=== PATIENT | female | born 1970 | race Caucasian/White ===

== ENCOUNTER 2018-04-30 21:02 | Inpatient (IN) ==
[2018-04-30] MEDS ORDERED: Isovue-370 500 ML INFUS..BTL IV ONE (22:05)
--- NOTE | 2018-04-30 22:06 | Emergency Department Note ---
Disposition Clinical Impression: Multifocal pneumonia Disposition: Admitted As Inpatient Condition: Undetermined General Adult HPI - General Chief complaint: ED General Medical Stated complaint: swollen left leg left arm numbness Time Seen by Provider: 04/30/18 21:39 Source: patient - History of Present Illness Pain Scale: 5 - Related Data Home Medications Medication Instructions Recorded Confirmed Buprenorphine HCl/Naloxone HCl 1 tab PO BID 05/01/18 05/01/18 [Buprenorphin-Naloxon 8-2 mg Sl] Allergies Allergy/AdvReac Type Severity Reaction Status Date / Time No Known Allergies Allergy Verified 05/30/16 17:20 Past Medical History - Past Medical History Medical history: Reports: non-contributory, other Psychiatric history: Reports: no psych history - Social History Smoking Status: Current some day smoker Alcohol use: Reports: none Drug use: Reports: none Physical Exam - General General appearance: alert, in no apparent distress Course Vital Signs Temperature 98.1 F 04/30/18 21:10 Pulse Rate 77 04/30/18 21:10 Respiratory Rate 16 04/30/18 21:10 Blood Pressure 123/82 04/30/18 21:10 O2 Sat by Pulse Oximetry 97 04/30/18 21:10 Temperature 98.0 F 05/01/18 14:54 Pulse Rate 74 05/01/18 14:54 Respiratory Rate 16 05/01/18 16:29 Blood Pressure 108/71 05/01/18 14:54 O2 Sat by Pulse Oximetry 97 05/01/18 16:29 Oxygen Delivery Oxygen Delivery Room Air Medical Decision Making - Lab Data Result diagrams: 05/01/18 04:26 05/01/18 04:26 Lab Results 04/30/18 04/30/18 05/01/18 Range/Units 22:15 22:15 04:26 WBC 11.3 H 10.6 (4.3-11.1) K/mcL RBC 4.17 4.08 (3.82-4.97) M/mcL Hgb 12.5 11.8 (11.5-15.4) g/dL Hct 36.0 35.0 L (35.3-44.9) % MCV 86.3 85.8 (83.0-100.0) fL MCH 30.0 28.9 (28.0-33.3) pg MCHC 34.7 33.7 (31.6-35.5) g/dL RDW 12.7 12.7 (11.5-14.5) % Plt Count 345 327 (140-400) K/mcL MPV 10.1 10.3 (9.4-12.4) fL Immature Gran % 0.5 0.4 (0-4) % Seg Neutrophils % 74.5 75.3 % Lymphocytes % 16.2 16.7 % Monocytes % 4.1 4.5 % Eosinophils % 3.6 2.3 % Basophils % 1.1 0.8 % Neutrophils # 8.4 8.0 (1.6-8.9) K/mcL Lymphocytes # 1.8 1.8 (0.6-4.6) K/mcL Monocytes # 0.5 0.5 (0.0-1.3) K/mcL Eosinophils # 0.4 0.2 (0.0-0.6) K/mcL Basophils # 0.1 0.1 (0.0-0.2) K/mcL Sodium 140 (136-145) mEq/L Potassium 3.0 L (3.5-5.1) mEq/L Chloride 106 (98-107) mEq/L Carbon Dioxide 27 (23-29) mEq/L BUN 6 (6-20) mg/dL Creatinine 0.37 L (0.60-1.20) mg/dL Est GFR ( Amer) > 60 (> 60) Est GFR (Non-Af Amer) > 60 (> 60) BUN/Creatinine Ratio 16 (6-26) Glucose 94 (70-105) mg/dL Calculated Osmolality 287 (280-300) Calcium 9.4 (8.6-10.3) mg/dL Troponin I < 0.03 (< 0.04) ng/mL 05/01/18 Range/Units 04:26 WBC (4.3-11.1) K/mcL RBC (3.82-4.97) M/mcL Hgb (11.5-15.4) g/dL Hct (35.3-44.9) % MCV (83.0-100.0) fL MCH (28.0-33.3) pg MCHC (31.6-35.5) g/dL RDW (11.5-14.5) % Plt Count (140-400) K/mcL MPV (9.4-12.4) fL Immature Gran % (0-4) % Seg Neutrophils % % Lymphocytes % % Monocytes % % Eosinophils % % Basophils % % Neutrophils # (1.6-8.9) K/mcL Lymphocytes # (0.6-4.6) K/mcL Monocytes # (0.0-1.3) K/mcL Eosinophils # (0.0-0.6) K/mcL Basophils # (0.0-0.2) K/mcL Sodium 140 (136-145) mEq/L Potassium 3.6 (3.5-5.1) mEq/L Chloride 107 (98-107) mEq/L Carbon Dioxide 27 (23-29) mEq/L BUN 5 L (6-20) mg/dL Creatinine 0.37 L (0.60-1.20) mg/dL Est GFR ( Amer) > 60 (> 60) Est GFR (Non-Af Amer) > 60 (> 60) BUN/Creatinine Ratio 14 (6-26) Glucose 102 (70-105) mg/dL Calculated Osmolality 287 (280-300) Calcium 9.1 (8.6-10.3) mg/dL Troponin I (< 0.04) ng/mL Attestation Statement - Attestation Attestation: I examined this patient and my medical decision-making was reviewed with the Resident Physician. I agree with the documented findings, disposition and treatment plan as described except to the extent set forth below. Patient to the ED with left leg pain and swelling for the past week. Increasing. She is also had some chest pain and some tingling in her left arm. No fever. No history of blood clots per mother had it. On examination she has tenderness swelling and a palpable cord of the left leg. Foot pink and warm. Heart regular lungs clear. Plan. Ultrasound rule out DVT. Cardiac workup with CTA chest. Ultrasound negative for DVT. CT shows pneumonia. We will start antibiotic. Chest CTA 04/30/18 22:05 IMPRESSION: No evidence of a pulmonary embolus. Bilateral patchy ground-glass airspace disease particularly in the mid lungs. Manifestation of multifocal pneumonia suspected. Edema, air trapping and atelectasis not excluded. D/ / Silvestre Cason MD / Silvestre Cason MD Interpreting Provider: Silvestre Cason MD
--- NOTE | 2018-04-30 22:08 | Emergency Department Note ---
Disposition Clinical Impression: Multifocal pneumonia Disposition: Admitted As Inpatient Condition: Undetermined Time of Disposition: 01:24 General Adult HPI - General Chief complaint: ED General Medical Stated complaint: swollen left leg left arm numbness Time Seen by Provider: 04/30/18 21:39 Source: patient Mode of arrival: ambulatory Limitations: no limitations Nursing Notes Reviewed: Yes Vital Signs Reviewed: Yes - History of Present Illness HPI Narrative: 47-year-old female with history of bigeminy, arrives to the emergency department with complaint of left lower extremity swelling, pain and redness. The patient states this started roughly 1 week ago. The patient states that also she started experiencing roughly 1 or 2 days later a small amount of chest pressure and dyspnea. The patient states this is continued. The patient states that she has no previous history of DVT or PE but mother does have history of "blood clot". The patient denies any other complaints at this time. She is resting comfortably in the room. The patient does have a palpable cord of her left lower extremity. Pain Scale: 5 - Related Data Allergies Allergy/AdvReac Type Severity Reaction Status Date / Time No Known Allergies Allergy Verified 05/30/16 17:20 All systems ED: reviewed and negative except as stated. Constitutional: Denies: fever, chills, weakness ENT ED: Denies: dysphagia Cardiovascular: Reports: chest pain. Denies: dyspnea on exertion, edema, syncope Respiratory: Reports: dyspnea. Denies: cough, sputum production Gastrointestinal: Denies: abdominal pain, nausea, vomiting Genitourinary: Denies: urgency, dysuria Musculoskeletal: Reports: myalgia. Denies: back pain, neck pain, arthralgia Integumentary: Denies: rash Neurological: Denies: headache Past Medical History - Past Medical History Attestation: Yes The following information was validated with the patient. Source: patient, old records reviewed Medical history: Reports: non-contributory, other Surgical history: Reports: non-contributory Psychiatric history: Reports: no psych history - Social History Smoking Status: Current some day smoker Alcohol use: Reports: none Drug use: Reports: none Physical Exam - General Limitations: no limitations General appearance: alert, in no apparent distress - Head Head exam: atraumatic, normocephalic, normal inspection - Eye Eye exam: Present: normal appearance, PERRL, EOMI - ENT ENT exam: normal exam, normal oropharynx, mucous membranes moist - Neck Neck exam: Present: normal inspection, full ROM, trachea midline - Chest Chest inspection: Present: normal inspection, symmetric chest wall rise - Respiratory Respiratory exam: Present: normal lung sounds bilaterally - Cardiovascular Cardiovascular exam: Present: regular rate, normal rhythm, normal heart sounds - Abdominal Exam Abdominal exam: Present: soft, Non-Tender. Absent: tenderness, distention, guarding, rebound, rigidity - Extremities Exam Extremities exam: Present: full ROM, tenderness (LLE with palpable cord noted in the left femoral region. Mild amount of erythema in the region as well) - Neurological Exam Neurological exam: Present: alert, oriented X3 - Skin Skin exam: Present: warm, dry, intact, normal color Course Vital Signs Temperature 98.1 F 04/30/18 21:10 Pulse Rate 77 04/30/18 21:10 Respiratory Rate 16 04/30/18 21:10 Blood Pressure 123/82 04/30/18 21:10 O2 Sat by Pulse Oximetry 97 04/30/18 21:10 Temperature 98.0 F 05/01/18 14:54 Pulse Rate 74 05/01/18 14:54 Respiratory Rate 16 05/01/18 16:29 Blood Pressure 108/71 05/01/18 14:54 O2 Sat by Pulse Oximetry 97 05/01/18 16:29 Oxygen Delivery Oxygen Delivery Room Air Medical Decision Making - MDM Narrative Medical decision making narrative: Patient's work-up in the ED demonstrates concerning for multifocal pneumonia. The patient was started on broad-spectrum anabiotic's and blood cultures were performed. The patient will be admitted to the hospital for further workup and care. Patient made aware and agrees to plan. No further questions or concerns noted at this time. The patient was accepted by Dr. Miller. - Lab Data Lab results reviewed: Yes I reviewed the patient's lab results. Result diagrams: 05/01/18 04:26 05/01/18 04:26 Lab Results 04/30/18 04/30/18 05/01/18 Range/Units 22:15 22:15 04:26 WBC 11.3 H 10.6 (4.3-11.1) K/mcL RBC 4.17 4.08 (3.82-4.97) M/mcL Hgb 12.5 11.8 (11.5-15.4) g/dL Hct 36.0 35.0 L (35.3-44.9) % MCV 86.3 85.8 (83.0-100.0) fL MCH 30.0 28.9 (28.0-33.3) pg MCHC 34.7 33.7 (31.6-35.5) g/dL RDW 12.7 12.7 (11.5-14.5) % Plt Count 345 327 (140-400) K/mcL MPV 10.1 10.3 (9.4-12.4) fL Immature Gran % 0.5 0.4 (0-4) % Seg Neutrophils % 74.5 75.3 % Lymphocytes % 16.2 16.7 % Monocytes % 4.1 4.5 % Eosinophils % 3.6 2.3 % Basophils % 1.1 0.8 % Neutrophils # 8.4 8.0 (1.6-8.9) K/mcL Lymphocytes # 1.8 1.8 (0.6-4.6) K/mcL Monocytes # 0.5 0.5 (0.0-1.3) K/mcL Eosinophils # 0.4 0.2 (0.0-0.6) K/mcL Basophils # 0.1 0.1 (0.0-0.2) K/mcL Sodium 140 (136-145) mEq/L Potassium 3.0 L (3.5-5.1) mEq/L Chloride 106 (98-107) mEq/L Carbon Dioxide 27 (23-29) mEq/L BUN 6 (6-20) mg/dL Creatinine 0.37 L (0.60-1.20) mg/dL Est GFR ( Amer) > 60 (> 60) Est GFR (Non-Af Amer) > 60 (> 60) BUN/Creatinine Ratio 16 (6-26) Glucose 94 (70-105) mg/dL Calculated Osmolality 287 (280-300) Calcium 9.4 (8.6-10.3) mg/dL Troponin I < 0.03 (< 0.04) ng/mL 05/01/18 Range/Units 04:26 WBC (4.3-11.1) K/mcL RBC (3.82-4.97) M/mcL Hgb (11.5-15.4) g/dL Hct (35.3-44.9) % MCV (83.0-100.0) fL MCH (28.0-33.3) pg MCHC (31.6-35.5) g/dL RDW (11.5-14.5) % Plt Count (140-400) K/mcL MPV (9.4-12.4) fL Immature Gran % (0-4) % Seg Neutrophils % % Lymphocytes % % Monocytes % % Eosinophils % % Basophils % % Neutrophils # (1.6-8.9) K/mcL Lymphocytes # (0.6-4.6) K/mcL Monocytes # (0.0-1.3) K/mcL Eosinophils # (0.0-0.6) K/mcL Basophils # (0.0-0.2) K/mcL Sodium 140 (136-145) mEq/L Potassium 3.6 (3.5-5.1) mEq/L Chloride 107 (98-107) mEq/L Carbon Dioxide 27 (23-29) mEq/L BUN 5 L (6-20) mg/dL Creatinine 0.37 L (0.60-1.20) mg/dL Est GFR ( Amer) > 60 (> 60) Est GFR (Non-Af Amer) > 60 (> 60) BUN/Creatinine Ratio 14 (6-26) Glucose 102 (70-105) mg/dL Calculated Osmolality 287 (280-300) Calcium 9.1 (8.6-10.3) mg/dL Troponin I (< 0.04) ng/mL - Radiology Data Radiology results reviewed: Yes I reviewed the patient's radiology results. Chest CTA 04/30/18 22:05 IMPRESSION: No evidence of a pulmonary embolus. Bilateral patchy ground-glass airspace disease particularly in the mid lungs. Manifestation of multifocal pneumonia suspected. Edema, air trapping and atelectasis not excluded. D/ / Silvestre Cason MD / Silvestre Cason MD Interpreting Provider: Silvestre Cason MD
[2018-04-30 22:28] LABS: Basophils # 0.1 K/mcL (0.0-0.2); Basophils % 1.1 %; Eosinophils # 0.4 K/mcL (0.0-0.6); Eosinophils % 3.6 %; Hemoglobin 12.5 g/dL (11.5-15.4); Immature Granulocytes % 0.5 % (0-4); Lymphocytes # 1.8 K/mcL (0.6-4.6); Lymphocytes % 16.2 %; Mean Corpuscular HGB Conc 34.7 g/dL (31.6-35.5); Mean Corpuscular Volume 86.3 fL (83.0-100.0); Mean Platelet Volume 10.1 fL (9.4-12.4); Monocytes # 0.5 K/mcL (0.0-1.3); Monocytes % 4.1 %; Neutrophils # 8.4 K/mcL (1.6-8.9); Platelet Count 345 K/mcL (140-400); Red Blood Count 4.17 M/mcL (3.82-4.97); Red Cell Distribution Width 12.7 % (11.5-14.5); Segmented Neutrophils % 74.5 %
[2018-04-30 22:49] LABS: Troponin I < 0.03 ng/mL (< 0.04)
[2018-04-30 22:50] LABS: BUN/Creatinine Ratio 16 (6-26); Blood Urea Nitrogen 6 mg/dL (6-20); Calcium 9.4 mg/dL (8.6-10.3); Carbon Dioxide 27 mEq/L (23-29); Chloride 106 mEq/L (98-107); Glucose 94 mg/dL (70-105); Osmolality,Calculated 287 (280-300); Sodium 140 mEq/L (136-145); eGFR For Non-African Americans > 60 (> 60)
[2018-05-01] MEDS ORDERED: Piperacillin/Tazobactam 3.375 GM in 0.9 % Sodium Chloride Mini Bag 100 ML IVPB ONE (00:58)
[2018-05-01] MEDS ORDERED: Ketorolac 15 MG/ML VIAL IVP PRN (02:38)
[2018-05-01] MEDS ORDERED: Acetaminophen 325 MG TABLET PO PRN (02:38)
[2018-05-01] MEDS: Ringers Solution, Lactated 1,000 ML IVC SCH ×2 (03:44→19:41)
--- NOTE | 2018-05-01 03:59 | Internal Med History&Physical ---
Date of Encounter: 05/01/18 Time of Encounter: 03:53 Internal Medicine - H&P: HPI Chief complaint: leg pain Admitted From: Home Plans for Post Hospital Care: Home History of present illness: Ms. Gr is a 47 year old woman with a history of opiate dependence (pills only, she denies IVDU) and no known medical comorbidities who presents to the ER with the complaint of left leg pain and swelling for the past week. She states that she noticed redness and pain on the medial aspect of her left leg first with a palpable "knot" which she felt was just a muscle spasm and it subsided. She then noticed swelling and redness inferior to the area which again subsided and now has exquisite tenderness and notable redness on the superior aspect of her inner left thigh. She denies fever per se but has felt some chills. She denies any trauma to the area or puncture wounds. She denies injections of any sort. 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 She denies being scratched by any object or animal. On arrival to the ER a palpable cord was felt where the inflammatory signs were noted concerning for an infectious process. A bedside ultrasound was done which ruled out DVT. The patient complained of some chest discomfort and tingling to the team for which reason a chest CT was obtained. The findings on this study were revealing of multifocal patchy opacifications that were non-specific but possibly suggestive of a pneumonia amongst other entities. She was started on empiric antibiotics and admitted for further management. The patient states that she does not access medical services and is not sure if she has any comorbidities. She smokes 1/2 pack daily. Has been working in the factory for years. She is not coughing or producing sputum. No pleuritic chest pain. Past Med Surg Social Fam HX - Past Medical History Medical history: non-contributory, other Additional medical history: bigemny Psychiatric history: no psych history - Past Surgical History Surgical History: appendectomy, cholecystectomy, hysterectomy Additional surgical history: TUBAL - Social History Smoking Status: Current some day smoker Packs per day: 0.5 Alcohol use: none Drug use: none - Family History Mother Adopted: [place]: JANNET Family Member Ethnicity: Non- Living Status: Age at : 60 Cause of : TUMOR OF SINUS CAVITY Hx Family Cardiac Disorders: Yes (AL) Hx Family Respiratory Disorders: No Hx Family Cancer: Yes Hx Family GI Disorders: No Hx Family Genitourinary Disorders: No Hx Family Endocrine Disorder: No Hx Family Musculoskeletal Disorders: No Hx Family Neuromuscular Disorders: No Hx Family Neurologic Disorders: No Hx Family HEENT Disorders: No Hx Family Autoimmune Disorders: No Hx Family Reproductive Disorders: No Hx Family Psychosocial Disorders: No Internal Medicine - H&P: Meds Buprenorphin-Naloxon 8-2 mg Sl 8 mg PO BID 05/01/18 [History] 3 Allergy/AdvReac Type Severity Reaction Status Date / Time No Known Allergies Allergy Verified 05/30/16 17:20 All Systems PM: A 10-system review of systems was performed and is negative for pertinent findings except as documented above in the HPI. - Constitutional Vitals: Temp Pulse Resp BP Pulse Ox 98.0 F 90 14 113/72 96 05/01/18 03:37 05/01/18 03:37 05/01/18 03:37 05/01/18 03:37 05/01/18 03:37 Exam: Vitals: Reviewed General: Well-developed and in no acute distress, comfortable on room air. Skin: Focal 5-6cm area of erythema over the superior inner left thigh with warmth and exquisite tenderness to palpation as well as a localized induration; medial aspect of lower left leg with resolving erythema but still a palpable cord-like area noted and some tenderness elicited on palpation. HEENT: Moist mucous membranes. No conjunctivae pallor. Neck: No lymphadenopathy. No JVD. No carotid bruits. No palpable thyroid. Chest: Normal thoracic expansion. Normal breath sounds. No wheezes, rales or rhonchi. Heart: Normal S1 & S2; rhythmic. No rubs or murmurs. Abdomen: Non-distended, soft and non-tender to palpation. No peritoneal reaction. Liver is normal in size. Spleen is not palpable. Extremities: No clubbing, cyanosis or edema. Normal distal pulses. Neurological: Awake, alert and oriented to person, place and time. No focal deficits. Psych: Affect appropriate. Internal Med - H&P Results - Labs CBC & Chem 7: 04/30/18 22:15 04/30/18 22:15 - Diagnostic Studies CT scan - chest Additional comments: Findings of multifocal patchy opacities are noted; no specific pattern and no consolidations or cavitations noted. Somewhat faint in appearance and suggestive of an early developing process or a resolving process. - Assessment and plan (1) Cellulitis Current Visit: Yes Status: Acute Assessment and plan: The patient has significant inflammatory signs that appear somewhat superficial to the skin but with palpable areas suggestive of lymphatic vessel affectation ( palpable cords of lymphangitis) or thrombophlebitis. She denies any puncture wounds or trauma as the inciting factor and it seems not confluent to just one area. She has mild leukocytosis but no fever. -Will place on vancomycin IV for now which should help cover Staph and Strep as the most likely bacterial organisms and she should be observed daily for improvement or not. -Blood cultures were obtained and should be followed. -Adequate doppler ultrasounds ordered to rule out any thrombosis. Qualifiers: Site of cellulitis: extremity Site of cellulitis of extremity: lower extremity Laterality: left Qualified Code(s): L03.116 - Cellulitis of left lower limb (2) Multifocal pneumonia Current Visit: Yes Status: Acute Assessment and plan: The patient does not have overt symptoms of pneumonia per se such as difficulty breathing, productive or even dry but bothersome and persistent cough, pleuritic chest pain, hypoxia. The differentials include an atypical pneumonia, a fungal process, an interstitial lung disease formation, inhalation pneumonitis and aspiration. It does not have the focal cavitations consistent with pulmonary septic emboli which can be seen in bacteremic cases especially taking into account her skin and soft tissue/vascular infection. -Sputum gram stain and culture is ordered if she does produce some. -Urine histoplasma Ag ordered (pulmonary disease can be preceded by inflammatory skin manifestations of erythema nodosum). -Will give atypical coverage with levofloxacin 500mg daily and discontinue PipTazo. -She will benefit from a repeat CT scan in a week or so to assess if this is a developing or resolving process. -May require pulmonary consultation for bronchoscopy and lavage to obtain better sampling for routine, anaerobic, fungal cultures and histopathology. (3) Hypokalemia Current Visit: Yes Status: Acute Assessment and plan: Will supplement with 40mEq of KCL and recheck. (4) Tobacco dependence Current Visit: Yes Status: Chronic Assessment and plan: Counseling given and resources made available. (5) Opiate dependence Current Visit: Yes Status: Chronic Assessment and plan: Will continue buprenorphine/naloxone BID. Avoiding narcotics for pain control unless necessary. Qualifiers: Substance use status: uncomplicated Qualified Code(s): F11.20 - Opioid dependence, uncomplicated (6) DVT prophylaxis Current Visit: Yes Status: Acute Assessment and plan: SubQ heparin ordered. - Time Spent With Patient Total time spent is greater than 50% in coordination of care (as documented) at patient's floor/unit and/or counseling patient: Greater than 35 minutes
[2018-05-01 05:15] LABS: Basophils # 0.1 K/mcL (0.0-0.2); Basophils % 0.8 %; Eosinophils # 0.2 K/mcL (0.0-0.6); Eosinophils % 2.3 %; Hemoglobin 11.8 g/dL (11.5-15.4); Immature Granulocytes % 0.4 % (0-4); Lymphocytes # 1.8 K/mcL (0.6-4.6); Lymphocytes % 16.7 %; Mean Corpuscular HGB Conc 33.7 g/dL (31.6-35.5); Mean Corpuscular Hemoglobin 28.9 pg (28.0-33.3); Mean Corpuscular Volume 85.8 fL (83.0-100.0); Mean Platelet Volume 10.3 fL (9.4-12.4); Monocytes # 0.5 K/mcL (0.0-1.3); Monocytes % 4.5 %; Platelet Count 327 K/mcL (140-400); Red Blood Count 4.08 M/mcL (3.82-4.97); Red Cell Distribution Width 12.7 % (11.5-14.5); Segmented Neutrophils % 75.3 %
[2018-05-01] MEDS: *HR* Heparin 5,000 UNIT/ML VIAL SQ SCH ×3 (06:17→21:48)
[2018-05-01 07:29] LABS: BUN/Creatinine Ratio 14 (6-26); Blood Urea Nitrogen 5 mg/dL (6-20); Calcium 9.1 mg/dL (8.6-10.3); Carbon Dioxide 27 mEq/L (23-29); Chloride 107 mEq/L (98-107); Glucose 102 mg/dL (70-105); Osmolality,Calculated 287 (280-300); Potassium 3.6 mEq/L (3.5-5.1); Sodium 140 mEq/L (136-145); eGFR For Non-African Americans > 60 (> 60)
--- NOTE | 2018-05-01 08:30 | Electrocardiograph Report ---
[address] [address] Test Date: 2018-04-30 Pat Name: Simona Gr Department: Room: 3B Gender: F Accounting Manager Controller: : 1970 Requested By: Marquis Sampson Order Number: [id number] Reading MD: Miguel Hurd Measurements Intervals [place] Rate: 67 P: 51 OK: 118 QRS: 68 QRSD: 94 T: 79 QT: 373 QTc: 394 Interpretive Statements Sinus rhythm Nonspecific ST-T changes Electronically Signed On 05-01-2018 8:29:21 EDT by Miguel Hurd
[2018-05-01] MEDS: Levofloxacin 500 MG/100 ML 500 MG/100 ML BAG IVPB SCH (10:21)
[2018-05-01] MEDS: BUPRENORPHIN NALOXON PO SCH ×2 (10:44→21:47)
[2018-05-01 11:51] LABS: Amphetamine Screen,Urine Negative ng/mL (Cutoff=1000); Barbiturate Screen,Urine Negative ng/mL (Cutoff=200); Benzodiazepines Screen,Urine Negative ng/mL (Cutoff=200); Cannabinoid Screen,Urine Negative ng/mL (Cutoff = 50); Cocaine Screen,Urine Negative ng/mL (Cutoff= 300); Opiate Screen,Urine Negative ng/mL (Cutoff=300); Phencyclidine Screen,Urine Negative ng/mL (Cutoff=25)
[2018-05-01] MEDS ORDERED: Aminoglycoside Consult 1 EACH MC ONE (13:12)
--- NOTE | 2018-05-01 16:06 | Internal Med Progress Note ---
Date of Encounter: 05/01/18 Time of Encounter: 09:20 - Assessment and plan (1) Multifocal pneumonia Current Visit: Yes Status: Acute Assessment and plan: Multifocal community-acquired pneumonia, present on admission, likely bacterial - slowly improving Continue IV Levaquin, IV Vancomycin, DuoNeb breathing treatment Incentive spirometry, O2 via nasal cannula as needed Cultures - pending CTA chest - bilateral patchy groundglass opacities, likely multifocal pneumonia Repeat labs in a.m., monitor closely (2) Cellulitis Current Visit: Yes Status: Acute Assessment and plan: Acute cellulitis left lower extremity with possible thrombophlebitis Continue IV Vancomycin, IV Levaquin Cultures - pending Ultrasound Doppler - negative for DVT Qualifiers: Site of cellulitis: extremity Site of cellulitis of extremity: lower extremity Laterality: left Qualified Code(s): L03.116 - Cellulitis of left lower limb (3) Opiate dependence Current Visit: Yes Status: Chronic Assessment and plan: Chronic pain and opiate dependence Patient is on Buprenorphine/Naloxone at home Qualifiers: Substance use status: uncomplicated Qualified Code(s): F11.20 - Opioid dependence, uncomplicated (4) Tobacco dependence Current Visit: Yes Status: Chronic Assessment and plan: Patient smokes about 1/2 ppd. Counseled on cessation Declines nicotine patch. (5) DVT prophylaxis Current Visit: Yes Status: Acute Assessment and plan: Continue heparin subcutaneous - Time Spent With Patient 25 - 35 minutes - Subjective Interval history: Examined this morning. Patient is awake and alert. Not in any distress. Denies chest pain or shortness of breath. Complains of mild cough. Also complains of mild generalized weakness. Patient's main complaint is left lower extremity pain. Worse with movement. Rates it 5/10. States that it is burning. No aggravating or alleviating factors. No fever. Hemodynamically stable. No other acute complaints. Admitted for multifocal pneumonia and cellulitis, possible thrombophlebitis. Continue IV Levaquin and IV Vancomycin. Cultures pending. CTA chest negative for PE. Ultrasound Doppler negative for DVT. Anticipate discharge home in 24- 48 hours. - Constitutional Vitals: Temp Pulse Resp BP Pulse Ox 98.0 F 74 16 108/71 97 05/01/18 14:54 05/01/18 14:54 05/01/18 14:54 05/01/18 14:54 05/01/18 14:54 General appearance: Present: cooperative, A&O X 3, pleasant, no acute distress, answers questions appropriately - Head Head exam: Present: atraumatic - Eye Eye exam: Present: EOMI - ENT ENT exam: Present: mucous membranes moist - Respiratory Respiratory exam: Present: decreased breath sounds (Slightly decreased in both bases, otherwise clear to auscultation). Absent: respiratory distress, rhonchi , wheezes, tachypnea - Cardiovascular Cardiovascular exam: Present: RRR, +S1, +S2 - GI/Abdominal GI/Abdominal exam: Present: soft, no peritoneal signs. Absent: distended, guarding, tenderness - Extremities Exam Extremities exam: Absent: calf tenderness, pedal edema, tenderness - Neurological Exam Neurological exam: Present: alert, oriented X3, no focal deficits. Absent: speech deficit Internal Medicine: Result - Labs CBC & Chem 7: 05/01/18 04:26 05/01/18 04:26 Consult Discharge Plan - Plan Referrals: NONE,PCP [Primary Care Provider] -
[2018-05-01] MEDS: Ipratropium/Albuterol Neb 3 ML IH SCH ×2 (16:29→22:22)
[2018-05-02] MEDS: Ipratropium/Albuterol Neb 3 ML IH SCH ×2 (03:24→11:10)
[2018-05-02 05:56] LABS: Hematocrit 30.4 % (35.3-44.9); Mean Corpuscular HGB Conc 33.6 g/dL (31.6-35.5); Mean Corpuscular Hemoglobin 29.5 pg (28.0-33.3); Mean Corpuscular Volume 87.9 fL (83.0-100.0); Mean Platelet Volume 10.3 fL (9.4-12.4); Platelet Count 275 K/mcL (140-400); Red Blood Count 3.46 M/mcL (3.82-4.97); Red Cell Distribution Width 12.8 % (11.5-14.5)
[2018-05-02 05:59] LABS: Hemoglobin 10.2 g/dL (11.5-15.4)
[2018-05-02 06:11] LABS: BUN/Creatinine Ratio 18 (6-26); Blood Urea Nitrogen 6 mg/dL (6-20); Calcium 8.8 mg/dL (8.6-10.3); Carbon Dioxide 29 mEq/L (23-29); Chloride 109 mEq/L (98-107); Glucose 108 mg/dL (70-105); Osmolality,Calculated 292 (280-300); Potassium 3.7 mEq/L (3.5-5.1); Sodium 142 mEq/L (136-145); eGFR For Non-African Americans > 60 (> 60)
[2018-05-02] MEDS: *HR* Heparin 5,000 UNIT/ML VIAL SQ SCH (06:13)
[2018-05-02] MEDS ORDERED: predniSONE 20 MG TABLET PO SCH (09:00)
[2018-05-02] MEDS: Levofloxacin 500 MG/100 ML 500 MG/100 ML BAG IVPB SCH (09:06)
[2018-05-02] MEDS: BUPRENORPHIN NALOXON PO SCH (11:17)
[2018-05-02 11:29] VITALS: BP 106/67
--- NOTE | 2018-05-02 12:41 | Discharge Summary ---
Orders not resulted at time of discharge: Pending orders 05/02/18 13:00 Vancomycin,Trough Timed 05/03/18 04:00 Basic Metabolic Panel AM 0400 Complete Blood Count [HEME] AM 0400 Magnesium AM 0400 Date of Encounter: 05/02/18 Time of Encounter: 09:40 - Discharge Diagnosis (1) Multifocal pneumonia Priority: Primary Status: Acute Comments: Multifocal community-acquired pneumonia, present on admission, likely bacterial - now improved - patient is asymptomatic Continue Augmentin, Bactrim DS, DuoNeb breathing treatment on discharge Continue Incentive spirometry on discharge Prescriptions for nebulizer machine, DuoNeb and antibiotics provided the patient Patient was on IV Levaquin, IV Vancomycin in the hospital Cultures - pending CTA chest - bilateral patchy groundglass opacities, likely multifocal pneumonia Patient insists on being discharged today. States that she will lose her job if she is not discharged. Patient is crying, and wants to go home. Advised at least 1 more day of stay in the hospital, but patient refused. Patient seems otherwise stable. Advised return if symptoms worsen. Follow-up with primary care physician (2) Cellulitis Priority: Primary Status: Acute Comments: Acute cellulitis left lower extremity with possible thrombophlebitis - now improved Continue Augmentin, Bactrim DS on discharge Cultures - pending Ultrasound Doppler - negative for DVT Patient insists on being discharged home today. Follow up with primary care physician. Return if symptoms worsen. Qualifiers: Site of cellulitis: extremity Site of cellulitis of extremity: lower extremity Laterality: left Qualified Code(s): L03.116 - Cellulitis of left lower limb (3) Opiate dependence Priority: Primary Status: Chronic Comments: Chronic pain and opiate dependence Continue home dose of Buprenorphine/Naloxone Qualifiers: Substance use status: uncomplicated Qualified Code(s): F11.20 - Opioid dependence, uncomplicated (4) Tobacco dependence Priority: Primary Status: Chronic Comments: Patient smokes about 1/2 ppd. Counseled on cessation Nicotine patch prescription provided. Hospital course: Ms. Gr is a 47 year old female with past medical history of opiate dependence and tobacco abuse. Patient presented to the ED with complaints of left lower leg pain and swelling for 1 week. Patient states that she noticed redness and pain and a possibly a knot. She stated that the symptoms were gradually worsening. She denies any injury or trauma. There was initial concern for cellulitis or thrombophlebitis. Ultrasound of the Doppler was obtained initially. This is negative for DVT. Patient also initially complained of some chest discomfort. CT of the chest revealed multifocal opacifications, suggestive of pneumonia. Patient was admitted for cellulitis and multifocal pneumonia. She was started on DuoNeb breathing treatment, IV Levaquin and IV vancomycin. Cultures are pending at this time. Patient's left lower leg erythema, warmth and tenderness have now improved significantly. Patient denies having any cough or shortness of breath at this time. States she feels better, wants to go home today. Patient seems to have tolerated all her meds well. She is being discharged on Augmentin, Bactrim DS and advised to continue DuoNeb breathing treatment. Prescriptions for antibiotics and also for nebulizer machine have been provided. Patient has been counseled extensively about smoking cessation. Nicotine patch prescription has been provided. No other acute events or palpitations during her stay in the hospital. Examined this morning. Patient is old blood. Not in any distress. Sitting up comfortable in bed. Denies chest pain or shortness breath. Patient is crying, stating that she wants to go home. States that she will job if she is not discharged today. Patient's labs vitals are all fairly within normal limits otherwise. Patient has been explained about her condition and plan of care in detail. She understood and agreed. No unanswered questions. No family members at the time of discharge. Advised return if symptoms worsen. Advised follow-up with primary care physician. Time spent discussing smoking cessation with patient: 3 to 10 minutes - Time Spent with Patient Total time spent providing and/or coordinating discharge services: Less than 30 minutes - Discharge Medications Prescriptions: Ipratropium/Albuterol Neb [Duoneb] 3 ml IH [id number] #30 inhsol Amoxicillin/Clavulanate [Augmentin] 875 mg PO BIDWM 10 Days #20 tablet Nicotine Patch [Nicoderm] 14 mg TD DAILY #30 patch.[id number] predniSONE [PredniSONE] 40 mg PO DAILY 9 Days #10 tablet Sulfamethoxazole/Trimeth DS [Bactrim DS] 1 each PO BID 10 Days #20 tablet Home Medications: Buprenorphine HCl/Naloxone HCl [Buprenorphin-Naloxon 8-2 mg Sl] 1 tab PO BID [History] Amoxicillin/Clavulanate [Augmentin] 875 mg PO BIDWM 10 Days #20 tablet 05/02/18 [Rx] Ipratropium/Albuterol Neb [Duoneb] 3 ml IH [id number] #30 inhsol 05/02/18 [Rx] Nicotine Patch [Nicoderm] 14 mg TD DAILY #30 patch.td24 05/02/18 [Rx] Sulfamethoxazole/Trimeth DS [Bactrim DS] 1 each PO BID 10 Days #20 tablet [Rx] predniSONE [PredniSONE] 40 mg PO DAILY 9 Days #10 tablet 05/02/18 [Rx] Allergies/Adverse Reactions: 3 Allergy/AdvReac Type Severity Reaction Status Date / Time No Known Allergies Allergy Verified 05/30/16 17:20 Date of admission: 05/01/18 04:31 Primary care physician: PCP NONE Discharging clinician: Danie Buchanan Anticipated date of discharge: 05/02/18 - Constitutional Vitals: Temp Pulse Resp BP Pulse Ox 98.4 F 86 16 106/67 98 05/02/18 11:26 05/02/18 11:26 05/02/18 11:26 05/02/18 11:26 05/02/18 11:26 General appearance: Present: cooperative, A&O X 3, pleasant, no acute distress, answers questions appropriately Exam: Awake and alert. Not in any distress. Able to provide history. Seems to be at baseline state. - Head Head exam: Present: atraumatic - Eye Eye exam: Present: EOMI - ENT ENT exam: Present: mucous membranes moist - Neck Neck exam general surgery: Present: supple - Respiratory Respiratory exam: Present: CTAB - Cardiovascular Cardiovascular exam: Present: RRR, +S1, +S2 - GI/Abdominal GI/Abdominal exam: Present: soft, no peritoneal signs. Absent: distended, firm , guarding, tenderness - Extremities Exam Extremities exam: Present: radial pulses palpable and symmetrical. Absent: calf tenderness, pedal edema, tenderness Additional comments: Left lower extremity erythema and warmth have significantly improved. No tenderness. Cellulitis has improved. - Neurological Exam Neurological exam: Present: alert, oriented X3, no focal deficits. Absent: speech deficit - Patient Status Disposition: Home, Self-Care Condition: Good Functional capacity at discharge: independent ambulation Overall status at discharge: patient is progressing back to baseline - Discharge Instructions Follow Up With: NONE,PCP [Primary Care Provider] - - Diet and Activity Activity: increase activity as tolerated, resume usual activities as tolerated Diet: advance to your usual diet
== END 2018-05-02 13:13 | disposition home or self-care (01) | DRG 602 ==
LOC: EMEROOARM 21:02 → 3BNU 21:02
PROVIDERS: ADMIT Family Medicine; ATTEND Family Medicine